=== PATIENT | male | born 1970 | race Hispanic/Latino ===

== ENCOUNTER 2020-06-21 11:53 | Inpatient (IN) | payer OTHER, SELFPAY ==
[~2020-06-21 11:53] MED LIST: Iopamidol-370 76% 500 ML 1 ML ONE
--- NOTE | 2020-06-21 12:48 | RAD ---
XR Shoulder Rt 3 View STANDARD HISTORY: Fall, right shoulder pain FINDINGS: There are mild degenerative changes in the acromial clavicular joint. No fracture or dislocation is i dentified. A right-sided moderate-sized pneumothorax is noted. Report was called over the telephone to JERONIMO BAKER NP in the emergency room at 12:44 PM
[2020-06-21] MEDS ORDERED: Morphine 4 MG/ML VIAL ONE ×2 (13:50→15:46)
[2020-06-21] MEDS ORDERED: Ondansetron PF 4 MG/2 ML Vial ONE (13:50)
[2020-06-21 13:51] LABS: #Lymphocytes 1.4 thou/uL (1.20-3.40); #Monocytes 0.8 thou/uL (0.11-0.59); #Neutrophils 8.5 thou/uL (1.40-6.50); %Basophils 0.4 % (0.0-1.0); %Eosinophils 0.3 % (0.0-10.0); %Lymphocytes 13.3 % (21.0-51.0); %Monocytes 7.7 % (0.0-10.0); %Neutrophils 78.4 % (42.0-75.0); Hemoglobin 17.3 g/dL (14.0-18.0); Mean Corpuscular HGB CONC 34.7 g/dL (32.0-36.0); Mean Corpuscular Hemoglobin 32.3 pg (27.0-31.0); Mean Corpuscular Volume 93.1 fL (78.0-98.0); Mean Platelet Volume 7.4 fL (7.4-10.4); Platelet Count 283 thou/uL (130-400); RBC Distribution Width 11.1 % (11.5-14.5); Red Blood Cell (RBC) Count 5.36 mill/uL (4.70-6.10); White Blood Cell (WBC) Count 10.8 thou/uL (4.8-10.8)
--- NOTE | 2020-06-21 13:55 | RAD ---
XR Chest Pa Lat STANDARD HISTORY: Right pneumothorax FINDINGS: The heart size is normal. There is a moderate-sized right pneumothorax and a probable small right pleural effusion. No mediastinal shift is seen. The left lung is clear. IMPRESSION: Moderate-sized right pneumothorax.
[2020-06-21 14:12] LABS: ALT (SGPT) 16 U/L (8-55); AST (SGOT) 24 U/L (5-34); Albumin 4.5 g/dL (3.5-5.0); Alkaline Phosphatase 129 U/L (40-110); Anion Gap 15 mmol/L (10-20); BUN (Urea Nitrogen) 15 mg/dL (8.9-20.6); Bilirubin, Total 0.9 mg/dL (0.2-1.2); Calc. Creatinine Clearance 0 mL/min (70-130); Calcium 9.4 mg/dL (7.8-10.44); Carbon Dioxide 26 mmol/L (22-29); Chloride 103 mmol/L (98-107); Estimated GFR-MDRD Greater than 90; Globulin 3.6 g/dL (2.4-3.5); Glucose 103 mg/dL (70-105); Potassium 4.2 mmol/L (3.5-5.1); Protein, Total 8.1 g/dL (6.0-8.3); Sodium 140 mmol/L (136-145)
--- NOTE | 2020-06-21 14:31 | CT ---
CT CERVICAL SPINE: Date: 06/21/2020 INDIATION: Shoulder pain and neck pain after fall. FINDINGS: Cervical vertebra maintain normal height and alignment. There are mild to moderate degenerative sanchez es noted with anterior osteophytes and mild degenerative disc change. There is no evidence of cervical spine fracture. IMPRESSION: 1. Mild degenerative changes of the cervical spine, most prominent at C3-4, C4-5, and C5-6 levels. P osterior spondylosis is noted. 2. No evidence of fracture. POS: [facility]
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
[2020-06-21] MEDS ORDERED: Lidocaine 1% w/Epinephrine 1:100K 20 ML VIAL ONE ×2 (15:15)
[2020-06-21] MEDS ORDERED: Morphine 4 MG/ML VIAL SLOW IVP PRN (15:21)
[2020-06-21] MEDS ORDERED: Dextrose 5% in Water 1,000 ML IV PRN (15:21)
[2020-06-21] MEDS ORDERED: Ondansetron PF 4 MG/2 ML Vial IVP PRN (15:21)
[2020-06-21] MEDS ORDERED: Dextrose 50% Abboject 50 ML SYRINGE SLOW IVP PRN (15:21)
[2020-06-21] MEDS ORDERED: Cyclobenzaprine 10 MG TAB PO PRN (15:24)
[2020-06-21] MEDS ORDERED: traMADol HCl 50 MG TAB PO PRN ×2 (15:24)
[2020-06-21 15:40] LABS: Magnesium 2.2 mg/dL (1.6-2.6); Phosphorus 3.3 mg/dL (2.3-4.7)
[2020-06-21] MEDS ORDERED: Ketorolac Tromethamine 30 MG/ML VIAL ONE (15:46)
[2020-06-21] MEDS ORDERED: HYDROmorphone 0.5 MG/0.5 ML SYRINGE ONE (16:08)
[2020-06-21] MEDS ORDERED: PHOS-NAK 1 PKT PACK PO SCH (17:00)
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
[2020-06-21] MEDS: Acetaminophen 500 MG TAB PO SCH ×2 (18:18→23:18)
[2020-06-21] MEDS: traMADol HCl 50 MG TAB PO SCH ×2 (18:19→23:18)
[2020-06-21 18:52] VITALS: BMI 27.2
[2020-06-21] MEDS: Ibuprofen 200 MG TAB PO SCH (21:10)
[2020-06-21] MEDS: Gabapentin 300 MG CAP PO SCH (21:10)
[2020-06-21] MEDS: Senokot S 8.6-50 MG TAB PO SCH (21:10)
[2020-06-21] MEDS: Famotidine/PF 20 mg/2ml Vial SLOW IVP SCH (21:11)
[2020-06-22] MEDS: Acetaminophen 500 MG TAB PO SCH (05:14)
[2020-06-22] MEDS: Ibuprofen 200 MG TAB PO SCH ×3 (05:14→21:12)
[2020-06-22] MEDS: traMADol HCl 50 MG TAB PO SCH (05:15)
[2020-06-22 05:52] LABS: #Eosinphils 0.1 thou/uL (0.0-0.7); #Lymphocytes 1.7 thou/uL (1.20-3.40); #Monocytes 0.6 thou/uL (0.11-0.59); #Neutrophils 4.5 thou/uL (1.40-6.50); %Basophils 0.5 % (0.0-1.0); %Eosinophils 1.5 % (0.0-10.0); %Monocytes 8.2 % (0.0-10.0); %Neutrophils 64.8 % (42.0-75.0); Hemoglobin 15.1 g/dL (14.0-18.0); Mean Corpuscular HGB CONC 33.3 g/dL (32.0-36.0); Mean Corpuscular Hemoglobin 31.4 pg (27.0-31.0); Mean Corpuscular Volume 94.2 fL (78.0-98.0); Mean Platelet Volume 7.5 fL (7.4-10.4); Platelet Count 259 thou/uL (130-400); Red Blood Cell (RBC) Count 4.82 mill/uL (4.70-6.10)
[2020-06-22 06:07] LABS: Anion Gap 13 mmol/L (10-20); BUN (Urea Nitrogen) 19 mg/dL (8.9-20.6); Calc. Creatinine Clearance 118 mL/min (70-130); Calcium 8.7 mg/dL (7.8-10.44); Carbon Dioxide 25 mmol/L (22-29); Chloride 102 mmol/L (98-107); Estimated GFR-MDRD 86; Glucose 96 mg/dL (70-105); Magnesium 2.1 mg/dL (1.6-2.6); Phosphorus 4.4 mg/dL (2.3-4.7); Potassium 3.9 mmol/L (3.5-5.1); Sodium 136 mmol/L (136-145)
--- NOTE | 2020-06-22 08:08 | RAD ---
RADIOGRAPH CHEST 1 VIEW: DATE: 06/22/2020 TIME: 5:27 AM HISTORY: 49-year-old male with acute, traumatic right pneumothorax COMPARISON: 06/21/2020 FINDINGS: There is a new chest tube entering from the right lateral mid rib cage, with distal tip overlying the right lateral edge of upper mediastinum. The pneumothorax is no longer visualized. Lung volumes are lower on the current study. New mild central patchy pulmonary densities are present at the medial lung bases at least some of which represent subsegmental atelectasis. The right pleural fluid representing hemothorax is no longer visible on this single AP view. No pulmonary edema. IMPRESSION: Upon placement of a right-sided chest tube, the right pneumothorax has currently resolved.
[2020-06-22] MEDS ORDERED: FLU VACC QS2020-21(6MOS UP)/PF 60 MCG/0.5 ML SYRINGE IM ONE (09:00)
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
[2020-06-22] MEDS: Polyethylene Glycol 3350 17 GM Packet PO SCH (10:09)
[2020-06-22] MEDS: Famotidine/PF 20 mg/2ml Vial SLOW IVP SCH (10:09)
[2020-06-22] MEDS: Senokot S 8.6-50 MG TAB PO SCH ×2 (10:09→21:12)
[2020-06-22] MEDS: Gabapentin 300 MG CAP PO SCH ×3 (10:09→21:12)
[2020-06-22] MEDS ORDERED: Acetaminophen/Codeine 30-300mg Tablet PO PRN (11:56)
[2020-06-22] MEDS: Acetaminophen/Codeine 30-300mg Tablet PO PRN ×2 (12:45→18:31)
[2020-06-22] MEDS: Acetaminophen 325 MG TAB PO SCH ×2 (12:51→18:34)
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
[2020-06-22 16:26] LABS: SARS-CoV-2 MS2 Positive; SARS-CoV-2 N Gene Negative; SARS-CoV-2 S Gene Negative; SARS-CoV-2 by NAA Not Detected (NotDetected); SARS-CoV-2 orf1ab Negative
[2020-06-22] MEDS: Enoxaparin Sodium 40 MG/0.4 ML SYRINGE SC SCH (21:12)
[2020-06-23] MEDS: Acetaminophen/Codeine 30-300mg Tablet PO PRN ×4 (00:33→18:07)
[2020-06-23] MEDS: Acetaminophen 325 MG TAB PO SCH ×5 (00:33→23:27)
--- NOTE | 2020-06-23 01:22 | PRG ---
DATE OF SERVICE: 06/23/2020 SUBJECTIVE: The patient was seen during evening rounds, sleeping, in no distress. The patient's nurse reports that his pain has much improved with the Tylenol No. 3. OBJECTIVE: The patient's vital signs are stable and he is afebrile. PLAN: Unchanged. Continue pain control. Continue right chest tube to water seal. Job ID: [id number]
[2020-06-23] MEDS: Ibuprofen 200 MG TAB PO SCH ×3 (05:57→21:06)
--- NOTE | 2020-06-23 08:09 | RAD ---
Chest one view HISTORY: Pneumothorax. Chest tube. Follow-up. COMPARISON: 06/22/2020. FINDINGS: Cardiac silhouette and pulmonary vasculature are unremarkable. Shallow inspiration accentua jose pulmonary markings. Right thoracostomy tube is unchanged in position. Extrapleural gas is now evident on the right, with the apical pleura just below the posterior aspect of the right second rib. Mild atelectasis at the right base partially obscures the right hemidiaphragm. Left lung is well-inflated. IMPRESSION : Recurrence of a small right apical pneumothorax.
[2020-06-23] MEDS: Polyethylene Glycol 3350 17 GM Packet PO SCH (09:51)
[2020-06-23] MEDS: Gabapentin 300 MG CAP PO SCH ×3 (09:51→21:06)
[2020-06-23] MEDS: Senokot S 8.6-50 MG TAB PO SCH ×2 (09:51→21:06)
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
[2020-06-23] MEDS: Lidocaine 5% Patch TD SCH (11:56)
--- NOTE | 2020-06-23 15:41 | RAD ---
PORTABLE CHEST: Date: 06/23/2020 INDICATION: Chest tube evaluation. Comparison made to film from earlier today. FINDINGS: Right chest tube does not appear significantly changed in position. The small right apical pneumothor ax is again seen without significant change. The left lung appears clear with left basilar streaky at electasis or infiltrate which is stable. IMPRESSION: No interval change in appearance of the chest. POS: [facility]
[2020-06-23] MEDS: Enoxaparin Sodium 40 MG/0.4 ML SYRINGE SC SCH (21:05)
[2020-06-23] MEDS: Lidocaine Patch Removal 1 EACH TOP SCH (23:27)
[2020-06-24] MEDS: Acetaminophen/Codeine 30-300mg Tablet PO PRN (05:10)
[2020-06-24] MEDS: Acetaminophen 325 MG TAB PO SCH ×3 (05:10→18:44)
[2020-06-24] MEDS: Ibuprofen 200 MG TAB PO SCH ×3 (05:10→20:50)
--- NOTE | 2020-06-24 07:37 | RAD ---
CHEST 1 VIEW: INDICATION: History of right-sided chest tube evaluation. COMPARISON: Prior exam dated 06/23/2020. FINDINGS: Small right pneumothorax remains. Some mid bibasilar subsegmental and left basilar subsegmental atel ectasis persist. Heart size is within normal limits. Osseous structures are unchanged. IMPRESSION: Stable right-sided pneumothorax. POS: [facility]
[2020-06-24] MEDS: Senokot S 8.6-50 MG TAB PO SCH ×2 (09:14→20:50)
[2020-06-24] MEDS: Gabapentin 300 MG CAP PO SCH ×3 (09:14→20:50)
[2020-06-24] MEDS: Polyethylene Glycol 3350 17 GM Packet PO SCH (09:14)
[2020-06-24] MEDS: Lidocaine 5% Patch TD SCH (11:34)
--- NOTE | 2020-06-24 16:45 | RAD ---
PORTABLE CHEST: Date: 06/24/2020 HISTORY: Pneumothorax. Comparison made to film from earlier today. FINDINGS: Right chest tube unchanged. Persistent right apical pneumothorax, possibly slightly larger when jeff red to the film from earlier this morning, although there are differences in angulation of the beam. Bibasilar atelectasis and/or infiltrates. Left lung otherwise clear. IMPRESSION: Persistent right pneumothorax, possibly larger when compared to this morning. POS: [facility]
[2020-06-24] MEDS: Enoxaparin Sodium 40 MG/0.4 ML SYRINGE SC SCH (20:51)
[2020-06-25] MEDS: Acetaminophen 325 MG TAB PO SCH ×4 (00:24→18:08)
[2020-06-25] MEDS: Lidocaine Patch Removal 1 EACH TOP SCH (00:24)
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
[2020-06-25] MEDS: Ibuprofen 200 MG TAB PO SCH ×2 (05:29→15:15)
[2020-06-25] MEDS: Senokot S 8.6-50 MG TAB PO SCH (09:02)
[2020-06-25] MEDS: Gabapentin 300 MG CAP PO SCH ×2 (09:03→15:15)
[2020-06-25] MEDS: Polyethylene Glycol 3350 17 GM Packet PO SCH (09:03)
--- NOTE | 2020-06-25 09:51 | RAD ---
PORTABLE CHEST: HISTORY: Followup pneumothorax. COMPARISON: Prior day's study. FINDINGS: Right-sided chest tube remains in place. The right pneumothorax persists, perhaps slightly smaller t jordan on the prior examination, although the difference is minimal. Atelectatic changes are seen in th e lung bases. IMPRESSION: Stable to minimal improvement to the right-sided pneumothorax. POS: CHRISTOS
[2020-06-25] MEDS: Lidocaine 5% Patch TD SCH (10:53)
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
[2020-06-26] MEDS: Enoxaparin Sodium 40 MG/0.4 ML SYRINGE SC SCH (00:09)
[2020-06-26] MEDS: Senokot S 8.6-50 MG TAB PO SCH ×2 (00:09→08:11)
[2020-06-26] MEDS: Gabapentin 300 MG CAP PO SCH ×2 (00:09→08:11)
[2020-06-26] MEDS: Acetaminophen 325 MG TAB PO SCH ×3 (00:09→11:28)
[2020-06-26] MEDS: Ibuprofen 200 MG TAB PO SCH ×2 (00:09→06:04)
[2020-06-26] MEDS: Lidocaine Patch Removal 1 EACH TOP SCH (00:10)
[2020-06-26] MEDS: Polyethylene Glycol 3350 17 GM Packet PO SCH (08:11)
--- NOTE | 2020-06-26 08:35 | RAD ---
Chest one view HISTORY: Pneumothorax. Follow-up. COMPARISON: 06/25/2020. FINDINGS: Cardiac silhouette and pulmonary vasculature are unremarkable. Mediastinum is midline. Righ t hemidiaphragm remains slightly elevated. Right thoracostomy tube no longer visible. Apical margin of the right pleura is just below the level of the right second rib. Left lung well-inflated. IMPRESSION : Interval removal of the right chest tube. Right pneumothorax slightly smaller than on the previous ex am.
[2020-06-26] MEDS: Lidocaine 5% Patch TD SCH (11:29)
[2020-06-26 11:36] VITALS: BP 130/89; TEMP 98.3
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
== END 2020-06-26 14:13 | disposition home or self-care (01) | DRG 200 ==
LOC: ERS 11:53 → SURG A 15:31
PROVIDERS: ADMIT Surgery; ATTEND Surgery
PROC: 0W9900Z Drainage of Right Pleural Cavity with Drainage Device, Open Approach (ICD-10-PCS; principal; 2020-06-21)
DX: S27.0XXA Traumatic pneumothorax, initial encounter (principal); S22.41XA Multiple fractures of ribs, right side, initial encounter for closed fracture; Z20.828 Contact with and (suspected) exposure to other viral communicable diseases; S42.001A Fracture of unspecified part of right clavicle, initial encounter for closed fracture; V28.4XXA Motorcycle driver injured in noncollision transport accident in traffic accident, initial encounter; Z90.49 Acquired absence of other specified parts of digestive tract
CPT/HCPCS: 32551; 36415; 71045; 71046; 71260; 72125; 74177; 80048; 80053; 83735; 84100; 85025; 87635; 96361; 96374; 96375; 96376; J1170; J1650; J1885; J2270; J2405; Q9967; S0028; U0003

== ENCOUNTER 2020-07-06 10:45 | Outpatient (CLI) | payer OTHER ==
--- NOTE | 2020-07-06 11:06 | RAD ---
EXAM: Chest 2 views: HISTORY: Rib fractures with right-sided pneumothorax COMPARISON: 06/21/2020, 06/26/2020 FINDINGS: There is a normal-sized cardiomediastinal silhouette. No pneumothorax is visualized on today's exami nation. There is a small right pleural effusion. There is elevation the right hemidiaphragm. There is a right clavicle fracture. IMPRESSION: 1. Resolution of right-sided pneumothorax 2. Right clavicle fracture 2. Small right pleural effusion
== END 2020-07-06 10:46 | disposition home or self-care (01) ==
LOC: BICRAD 10:45
PROVIDERS: ATTEND Surgery
DX: S22.39XA Fracture of one rib, unspecified side, initial encounter for closed fracture (principal); J93.9 Pneumothorax, unspecified; J90 Pleural effusion, not elsewhere classified; S42.001A Fracture of unspecified part of right clavicle, initial encounter for closed fracture
CPT/HCPCS: 71046